=== PATIENT | female | born 1980 | race Caucasian/White ===

== ENCOUNTER 2020-01-30 14:36 | Emergency (ER) | payer OTHER, SELFPAY ==
[2020-01-30 15:15] VITALS: BP 112/75; PULSE 97; RESP 20; TEMP 36.6; O2SAT 100
--- NOTE | 2020-01-30 15:26 | ECG_ITS ---
Measurements Intervals [place] Rate: 89 P: 45 MD: 135 QRS: 87 QRSD: 89 T: 49 QT: 374 QTc: 457 Interpretive Statements SINUS RHYTHM MINIMAL Q WAVES- INFERIOR LEADS BASELINE ARTIFACT- V1, V5 BORDERLINE ECG Electronically Signed On 01-30-2020 17:51:53 CDT by Clifford Nguyen D.O.
--- NOTE | 2020-01-30 15:34 | ED.OVERDOSE ---
HPI - Overdose General Chief Complaint: Overdose Stated Complaint: amb Source: patient and family Mode of arrival: ambulatory Limitations: no limitations History of Present Illness HPI Narrative: pt is a 39 yo female who presents to EDafter drinking and taking a bunch of ativan. Unsure how many per patient. SHe sent text messages to her family to direct the money where to go from her money. Family interpreted this as a suicidal statement. is recently [facility] and he states she has been very very depressed. He said she drinks and is like this all the time. complaint: intentional overdose Intent: unwilling to say Context: Accidental Overdose: was drinking then took pills Associated symptoms: depression Treatments Prior to Arrival: none Related Data Home Medications Medication Instructions Recorded Confirmed bupropion HCl [Wellbutrin XL] 300 mg PO QAM 01/30/20 01/30/20 lorazepam 0.5 mg PO DAILY PRN 01/30/20 01/30/20 Allergies Allergy/AdvReac Type Severity Reaction Status Date / Time No Known Allergies Allergy Verified 01/30/20 15:32 Review of Systems Review of Systems: All systems reviewed & are unremarkable except as noted in HPI and below PMFSH Past Medical History Medical History Alcohol abuse Depression Family History Family History Mother Hypertension Social History Social History (Updated 01/30/20 @ 15:43 by Ghada Villagomez MD) Smoking status: Current every day smoker Alcohol intake: current Substance use type: marijuana Living arrangements: with family Gender identity (if verbalized by the patient): Female Exam Const: General: no acute distress Nutritional Appearance: thin Orientation/consciousness: patient oriented x3 HENMT: Head: normal to inspection Eyes: Conjunctivae: conjunctivae normal Pupils: Equal, round and reactive pupils present Neck: Neck: normal visual inspection Chest: Chest palpation & inspection: normal inspection of the chest Resp: Effort & Inspection: normal respiratory effort Cardio: Rate: regular rate Rhythm: regular rhythm GI: GI Palp: Yes Soft to palpation, No Tenderness to palpation present (GI) and No Guarding due to palpation present (GI) Back/Spine/Pelvis: Back: no CVA tenderness Skin: General skin exam: normal color Neuro: General: patient oriented x3 and moves all extremities Extrem: General: normal to inspection Psych: Appearance: grossly normal Mental Status: mental status grossly normal Thought content: Yes Depressive thoughts present Other: intoxicated Course Course Emergency Course: Pt states that she is not going to stay any more. She is not suicidal at all, and states she isnt even depressed. Pt says she was just telling her sibs that she didnt need or want the money, she just wanted her kids to have it. I asked the tif he was concerned about her depression and he stated that he wasnt going to say anyting or answer any of my wuestions. Pt was not clinically intoxicated and denied SI. I did not hav enough to hold her here against her will. She signed out AMA and mental health was notified per nursing Vital Signs Vital signs: Vital Signs Temperature 36.6 C 01/30/20 15:15 Pulse Rate 97 01/30/20 15:15 Respiratory Rate 20 01/30/20 15:15 Blood Pressure 112/75 01/30/20 15:15 Pulse Oximetry 100 01/30/20 15:15 Temperature 36.6 C 01/30/20 15:15 Pulse Rate 87 01/30/20 18:05 Respiratory Rate 14 01/30/20 20:07 Blood Pressure 99/60 L 01/30/20 18:05 Pulse Oximetry 93 01/30/20 18:05 MDM - Overdose Lab Data Result diagrams: 01/30/20 15:37 01/30/20 15:37 Labs: Lab Results 01/30/20 01/30/20 01/30/20 Range/Units 15:26 15:27 15:37 WBC 13.0 H (4.8-10.8) K/mm3 RBC 4.95 (4.20-5.40) M/mm3 Hgb
[2020-01-30 15:43] VITALS: RESP 20
[2020-01-30 15:43] LABS: Basophils Absolute Auto 0.07 K/mm3 (0.00-0.10); Basophils Percent Auto 0.5 % (0.0-1.0); Eosinophils Absolute Auto 0.19 K/mm3 (0.02-0.50); Eosinophils Percent Auto 1.5 % (1.0-6.0); Hematocrit 44.6 % (35.0-49.0); Immature Granulocyte Absolute 0.06 K/mm3 (0.00-0.00); Immature Granulocyte Percent A 0.5 % (0.0-0.0); Lymphocytes Absolute Auto 4.25 K/mm3 (1.10-4.50); Lymphocytes Percent Auto 32.7 % (18.0-42.0); Mean Corpuscular HGB Conc 33.6 g/dL (32.0-36.0); Mean Corpuscular Hemoglobin 30.3 pg (27.0-31.0); Mean Corpuscular Volume 90.1 fL (78.0-102.0); Monocytes Absolute Auto 0.83 K/mm3 (0.10-0.90); Monocytes Percent Auto 6.4 % (2.0-11.0); Neutrophils Absolute Auto 7.6 K/mm3 (1.7-7.2); Neutrophils Percent Auto 58.4 % (50.0-70.0); Platelet Count Result 441 K/mm3 (150-420); Red Blood Count 4.95 M/mm3 (4.20-5.40); Red Cell Distribution Width 13.2 % (11.6-14.4)
[2020-01-30 15:45] LABS: Appearance Urine Clear (Clear); Bilirubin Urine Negative (Negative); Color Urine Straw (Yellow); Glucose Urine UA Negative (Negative); Ketones Urine Negative (Negative); Leukocyte Esterase Ur Negative LEU/UL (Negative); Nitrate Urine Negative (Negative); Protein Urine Negative (Negative); Specific Grav Ur <= 1.005 (1.010-1.020); Urobilinogen Urine 0.2 mg/dL (0.2-1.0); pH Urine 5.5 (5.0-8.0)
[2020-01-30 15:50] LABS: Add Urine Microscopic? YES; Blood Urine Trace-Intact (Negative); RBC Urine None seen /hpf (0-2)
[2020-01-30 15:51] LABS: Amphetamine Screen Urine Negative (Negative); Barbiturate Screen Urine Negative (Negative); Benzodiazepines Screen Urine Negative (Negative); Cannabinoid Screen Urine Negative (Negative); Cocaine Screen Urine Negative (Negative); Methadone Screen Urine Negative (Negative); Opiate Screen Urine Negative (Negative); Phencyclidine Screen Urine Negative (Negative)
[2020-01-30 15:51] LABS: Bacteria Urine None seen /hpf; Squamous Epithelial Cell Urine Rare /hpf (Few); WBC Urine None seen /hpf (0-3)
[2020-01-30 15:56] LABS: Acetaminophen 0 ug/mL (10-30); Alanine Aminotransferase 32 U/L (14-59); Albumin Level 4.1 g/dL (3.4-5.0); Alkaline Phosphatase 79 U/L (46-116); Ammonia < 10 umol/L (11-32); Anion Gap 12 mmol/L (8-16); Aspartate Amino Transferase 18 U/L (15-37); Bilirubin,Total 0.3 mg/dL (0.00-1.00); Blood Urea Nitrogen 10 mg/dL (7-18); Calcium 8.5 mg/dL (8.5-10.1); Carbon Dioxide 25 mmol/L (21-32); Chloride 103 mmol/L (98-108); Estimated Glomerular Filt Rate > 60; Ethanol 198 mg/dL (0-6); Glucose 73 mg/dL (70-99); Magnesium 2.4 mg/dL (1.8-2.4); Osmolality Calculated 288 mOsm/kg (285-295); Potassium 3.7 mmol/L (3.5-5.1); Salicylate 5.2 mg/dL (2.8-20.0); Sodium 140 mmol/L (136-145); Total Protein 8.6 g/dL (6.4-8.2)
[2020-01-30 16:00] VITALS: BP 101/63; PULSE 86; RESP 20; O2SAT 93
[2020-01-30 17:00] VITALS: BP 116/68; PULSE 94; RESP 20; O2SAT 95
[2020-01-30 18:05] VITALS: BP 99/60; PULSE 87; RESP 20; O2SAT 93
--- NOTE | 2020-01-30 18:09 | PC.NURSE ---
1530 Doctor has assessed pt and lab work is being drawn 1600 pt tearful with and resting quietly in bed 1630 pt resting quietly with eyes closed at bedside 1700 pt resting quietly with eyes closed at bedside 1730 pt resting quietly with eyes closed at bedside 1800 pt resting quietly with eyes closed at bedside
--- NOTE | 2020-01-30 20:02 | PC.NURSE ---
PT STATES TO RN THAT SHE WANTS TO SIGN OUT AMA. ERP CONTACTED. ERP ASSESSED PT AND STATES WE ARE UNABLE TO HOLD HER AGAINST HER WILL SINCE SHE IS NOT A DANGER TO HERSELF OR OTHERS AND IS NOT CLINICALLY INTOXICATED AT THIS TIME. RN EDUCATED PATIENT AND EXPLAINED RISKS OF SIGNING OUT OF THE HOSPITAL AMA. REFUSAL OF MEDICAL TREATMENT/EXAM FORM COMPLETED BY RN AND SIGNED BY PATIENT.
[2020-01-30 20:07] VITALS: RESP 14
[2020-01-30 20:08] LABS: Ethanol 83 mg/dL (0-6)
== END 2020-01-30 20:08 | disposition left against medical advice (07) ==
PROVIDERS: Emergency Provider Emergency Medicine; PCP Physician Assistant
DX: T50.901A Poisoning by unspecified drugs, medicaments and biological substances, accidental (unintentional), initial encounter (principal)
CPT/HCPCS: 36415; 80053; 80307; 81001; 82140; 83735; 85025; 93005; 99283

== ENCOUNTER 2020-07-17 14:46 | Emergency (ER) | payer OTHER, SELFPAY ==
--- NOTE | ~2020-07-17 | XR_ITS ---
XR chest 2V DATE: 07/17/2020 15:58 INDICATION: Midsternal chest pain, intermittent palpitations TECHNIQUE: PA and lateral views COMPARISON: None FINDINGS: Normal heart size. Aortic arch calcification. No hilar or mediastinal enlargement. The lungs are hyperinflated and lung markings are scattered circular in the upper lung zones, suggest ing emphysema. There is mild dextroscoliosis of the thoracolumbar spine. IMPRESSION: Bilateral hyperinflation, suggesting COPD Aortic atherosclerosis No active cardiopulmonary disease Reviewed, dictated and finalized at location A.
[2020-07-17 15:08] VITALS: BP 173/110; PULSE 80; RESP 18; TEMP 37.1; O2SAT 98
[2020-07-17 15:09] VITALS: PULSE 88
--- NOTE | 2020-07-17 15:09 | ECG_ITS ---
Measurements Intervals [place] Rate: 74 P: 55 DC: 143 QRS: 78 QRSD: 89 T: 66 QT: 374 QTc: 417 Interpretive Statements SINUS RHYTHM NORMAL ECG Electronically Signed On 07-17-2020 17:34:23 CDT by Clifford Nguyen D.O.
[2020-07-17] MEDS: SODIUM CHLORIDE 0.9% IV 1,000 ML 999 ML IV CONT (15:35)
[2020-07-17] MEDS: ONDANSETRON INJ 4 MG/2 ML VIAL IV PUSH (15:37)
[2020-07-17] MEDS: MAG HYDROX/ALUMINUM HYD/SIMETH 30 ML, PHENobarb/HYOSCY/ATROPINE/SCOP 32.4 MG, LIDOCAINE... PO (15:43)
[2020-07-17 16:04] LABS: Basophils Absolute Auto 0.04 K/mm3 (0.00-0.10); Basophils Percent Auto 0.3 % (0.0-1.0); Eosinophils Absolute Auto 0.17 K/mm3 (0.02-0.50); Eosinophils Percent Auto 1.4 % (1.0-6.0); Hemoglobin 15.1 g/dL (12.0-15.0); Immature Granulocyte Absolute 0.03 K/mm3 (0.00-0.00); Immature Granulocyte Percent A 0.2 % (0.0-0.0); Lymphocytes Absolute Auto 2.82 K/mm3 (1.10-4.50); Lymphocytes Percent Auto 22.4 % (18.0-42.0); Mean Corpuscular HGB Conc 33.6 g/dL (32.0-36.0); Mean Corpuscular Volume 92.4 fL (78.0-102.0); Mean Platelet Volume 9.5 fl (9.2-11.8); Monocytes Absolute Auto 0.84 K/mm3 (0.10-0.90); Monocytes Percent Auto 6.7 % (2.0-11.0); Neutrophils Absolute Auto 8.7 K/mm3 (1.7-7.2); Platelet Count Result 390 K/mm3 (150-420); Red Blood Count 4.87 M/mm3 (4.20-5.40); Red Cell Distribution Width 12.4 % (11.6-14.4); White Blood Count 12.6 K/mm3 (4.8-10.8)
[2020-07-17 16:26] VITALS: BP 136/97; PULSE 66; RESP 18; O2SAT 98
[2020-07-17 16:29] LABS: Alanine Aminotransferase 24 U/L (14-59); Albumin Level 3.5 g/dL (3.4-5.0); Alkaline Phosphatase 69 U/L (46-116); Anion Gap 8 mmol/L (8-16); Aspartate Amino Transferase 16 U/L (15-37); Bilirubin,Total 0.6 mg/dL (0.00-1.00); Blood Urea Nitrogen 11 mg/dL (7-18); Calcium 8.5 mg/dL (8.5-10.1); Carbon Dioxide 28 mmol/L (21-32); Chloride 99 mmol/L (98-108); Estimated CRCL calculation 63 ml/min; Estimated Glomerular Filt Rate > 60; Glucose 109 mg/dL (70-99); Osmolality Calculated 280 mOsm/kg (285-295); Potassium 3.1 mmol/L (3.5-5.1); Sodium 135 mmol/L (136-145); Total Protein 7.5 g/dL (6.4-8.2); Troponin I < 4.0 ng/L (0.00-60.4)
[2020-07-17 16:30] LABS: Thyroid Stimulating Hormone 1.82 uIU/mL (0.36-3.74)
--- NOTE | 2020-07-17 16:37 | ED.CHESTPAIN ---
HPI - Chest Pain General Chief Complaint: Chest Pain Stated Complaint: chest pain Source: patient Mode of arrival: ambulatory Limitations: no limitations History of Present Illness HPI narrative: This is a 39-year-old female that presents with some chest discomfort more epigastric in nature with no radiation no shortness of breath no fever chills little nausea with no vomiting no diaphoresis, the patient is a smoker and alcohol user, with some past medical history of COPD but currently no fever chills no cough no shortness of breath. All the pain is elicited in the epigastric area and started today feels like there is a knot in her epigastric area with no reproducible chest pain. complaint: chest discomfort Timing of current episode: episodic Onset: during rest Pain location: epigastric Pain radiation: none Severity: moderate Related Data Allergies Allergy/AdvReac Type Severity Reaction Status Date / Time No Known Allergies Allergy Verified 01/30/20 15:32 Review of Systems Review of Systems: All systems reviewed & are unremarkable except as noted in HPI and below PMFSH Past Medical History Medical History Alcohol abuse Depression Family History Family History Mother Hypertension Social History Social History Smoking status: Current every day smoker Alcohol intake: current Substance use type: marijuana Gender identity (if verbalized by the patient): Female Exam Const: General: no acute distress Orientation/consciousness: patient oriented x3 HENMT: Head: normal to inspection Eyes: Conjunctivae: conjunctivae normal Pupils: Equal, round and reactive pupils present Direct Ophthalmoscopy: no photophobia Neck: Neck: normal visual inspection Chest: Chest palpation & inspection: normal inspection of the chest Resp: Effort & Inspection: normal respiratory effort Auscultation: clear to auscultation bilaterally Cardio: Rate: regular rate Rhythm: regular rhythm GI: Auscultation: normal bowel sounds : General: Yes no CVA tenderness Urinary Catheter: Urinary Catheter: patent and draining Back/Spine/Pelvis: Back: no CVA tenderness Skin: General skin exam: normal color Rashes: no rashes Neuro: General: patient oriented x3, moves all extremities, no meningeal signs and no focal motor deficits Extrem: General: normal to inspection and no pedal edema Psych: Appearance: grossly normal Mental Status: mental status grossly normal Course Course Emergency Course: Patient received Zofran and a GI cocktail and states that her epigastric and chest pain have markedly improved, reviewed lab findings and x-rays with the patient and stated that her potassium was low and will give her a dose of potassium while the patient is in the ER and will send a prescription for potassium. Vital Signs Vital signs: Vital Signs Temperature 37.1 C 07/17/20 15:08 Pulse Rate 80 07/17/20 15:08 Respiratory Rate 18 07/17/20 15:08 Blood Pressure 173/110 H 07/17/20 15:08 Pulse Oximetry 98 07/17/20 15:08 Temperature 37.1 C 07/17/20 15:08 Pulse Rate 66 07/17/20 16:26 Respiratory Rate 18 07/17/20 16:26 Blood Pressure 136/97 H 07/17/20 16:26 Pulse Oximetry 98 07/17/20 16:26 MDM - Chest Pain Lab Data Result diagrams: 07/17/20 16:00 07/17/20 16:00 Labs: Lab Results 07/17/20 07/17/20 07/17/20 Range/Units 16:00 16:00 16:00 WBC 12.6 H (4.8-10.8) K/mm3 RBC 4.87 (4.20-5.40) M/mm3 Hgb 15.1 H (12.0-15.0) g/dL Hct 45.0 (35.0-49.0) % MCV 92.4 (78.0-102.0) fL MCH 31.0 (27.0-31.0) pg MCHC 33.6 (32.0-36.0) g/dL RDW 12.4 (11.6-14.4) % Plt Count 390 (150-420) K/mm3 MPV 9.5 (9.2-11.8) fl Immature Gran % (Auto) 0.2 H (0.0-0.0) %
[2020-07-17] MEDS: POTASSIUM CHLORIDE 20 MEQ TABLET 40 MEQ PO (16:44)
== END 2020-07-17 16:51 | disposition home or self-care (01) ==
PROVIDERS: Emergency Provider Emergency Medicine; PCP Physician Assistant
DX: R07.89 Other chest pain (principal); E87.6 Hypokalemia; K21.9 Gastro-esophageal reflux disease without esophagitis
CPT/HCPCS: 36415; 71046; 80053; 84443; 84484; 85025; 93005; 96361; 96374; 99283; 99284; A9270; J2405; J7030

== ENCOUNTER 2020-07-25 15:40 | Emergency (ER) | payer OTHER, SELFPAY ==
[2020-07-25 15:40] VITALS: BP 130/94; PULSE 84; RESP 16; TEMP 36.6; O2SAT 96
--- NOTE | 2020-07-25 16:31 | ED.SKABFB ---
HPI - Skin/Abscess/Foreign Bdy General Chief complaint: Skin/Abscess/Foreign Body Stated complaint: rash on inner thigh Time Seen by Provider: 07/25/20 16:31 Source: patient Mode of arrival: ambulatory Limitations: no limitations History of Present Illness HPI narrative: 39-year-old woman comes in today complaining of a rash on the inside of her right thigh. She states that is somewhat itchy and mildly painful. She is concerned that it might be shingles. She states his symptoms started approximately 3 days ago had no prodromal symptoms. She has had no fever, nausea, vomiting or blister like lesions. complaint: rash Onset (ago): day(s) (3) Location: RLE Severity: moderate Quality: burning and pruritic Pain Consistency: constant Exacerbating factors: none Context: none Associated symptoms: itching Treatments prior to arrival: other ( [id number] salve.) Related Data Allergies Allergy/AdvReac Type Severity Reaction Status Date / Time No Known Allergies Allergy Verified 01/30/20 15:32 Review of Systems Review of Systems: All systems reviewed & are unremarkable except as noted in HPI and below Constitutional: Constitutional: Denies chills and Denies fever(s) Eyes: Eyes: Reports change in vision and Reports photophobia ENT: Denies dysphagia, Denies nasal congestion and Denies sore throat Cardiovascular: Cardiovascular: Denies chest pain and Denies radiating jaw, neck or arm pain Respiratory: Respiratory: Denies cough and Denies dyspnea Gastrointestinal: Gastrointestinal: Denies abdominal pain, Denies nausea and Denies vomiting Integumentary/Breasts: Skin/Breast: Denies pruritus, Denies erythema and Denies rash Neurologic: Denies vertigo, Denies dizziness, Denies syncope, Denies headache(s) and Denies focal weakness Hematologic/Lymphatic: Hematologic/Lymphatic: Denies easy bleeding and Denies easy bruising Allergic/Immunologic: Allergic/Immunologic: Denies lip swelling and Denies throat swelling PMFSH Past Medical History Medical History Alcohol abuse Depression Family History Family History Mother Hypertension Social History Social History Smoking status: Current every day smoker Alcohol intake: current Substance use type: marijuana Gender identity (if verbalized by the patient): Female Exam Const: General: healthy appearing, no acute distress and alert Orientation/consciousness: patient oriented x3 Limitations: no limitations Eyes: Conjunctivae: conjunctivae normal Pupils: Equal, round and reactive pupils present EOM: EOMs intact bilaterally Resp: Effort & Inspection: normal respiratory effort and not labored Auscultation: clear to auscultation bilaterally, no rales, no rhonchi and no wheezes Cardio: Rate: regular rate Rhythm: regular rhythm Heart sounds: no murmurs GI: GI Palp: Yes Soft to palpation and No Tenderness to palpation present (GI) Auscultation: normal bowel sounds Other: no hepatosplenomegaly Skin: General skin exam: normal color, no jaundice and no pallor Other: patchy erythematous rash on the medial aspect of the right upper thigh. No vesicles or bullous lesions are present. Neuro: General: patient oriented x3, moves all extremities, no focal motor deficits and CN's II-XI intact bilaterally Speech: normal speech Gait exam (Neuro): Normal gait present Extrem: General: normal to inspection and no clubbing, cyanosis or edema Psych: Appearance: grossly normal and well kempt Mental Status: mental status grossly normal Affect: normal affect Attitude: cooperative Thought content: Yes Normal thought content present Course Vital Signs Vital signs: Vital Signs Temperature 36.6 C 07/25/20 15:40 Pulse Rate 84 07/25/20 15:40 Respiratory Rate 16 07/25/20 15:40 Blood Press
[2020-07-25 17:00] VITALS: RESP 16
== END 2020-07-25 17:00 | disposition home or self-care (01) ==
LOC: CHSED 15:41
PROVIDERS: Emergency Provider Emergency Medicine; PCP Physician Assistant
DX: R21 Rash and other nonspecific skin eruption (principal)
CPT/HCPCS: 99283

== ENCOUNTER 2020-10-03 17:03 | Outpatient (CLI) | payer OTHER, SELFPAY ==
--- NOTE | ~2020-10-03 | XR_ITS ---
EXAMINATION: XR lumbar spine 2-3V EXAM DATE: 10/03/2020 17:34 INDICATION: Low back, right hip pain. Numbness going down right leg. TECHNIQUE: Lumber spine frontal, lateral, lateral L5-S1 projections for interpretation. There is no prior study for comparison. FINDINGS: The vertebral bodies are aligned in the AP dimension. There is mild loss of the L3-4 disc height. The vertebral body and disc heights are otherwise well maintained. Minimal lumbar levocurvatu re, could be positional. Mild lumbar facet arthropathy. Sacrum, sacroiliac joints, sacral arcuate kyleigh es are intact. There is a placement. Essure closure devices. IMPRESSION: 1. Mild lumbar spondylosis. Reviewed, dictated and finalized at location A. IMPRESSION: 1. Mild lumbar spondylosis.
--- NOTE | ~2020-10-03 | XR_ITS ---
EXAMINATION: XR hip RT min 2V EXAM DATE: 10/03/2020 17:35 INDICATION: Hip replacement 2005. Right leg numbness. TECHNIQUE: Right hip frontal, 'frog leg' projections for interpretation. There is no prior study fo r comparison. FINDINGS: Right hip arthroplasty, hardware in expected position. There are Essure closure devices. Th ere are no acute fractures or dislocations identified. There is no subcutaneous gas. The soft tissu e is unremarkable. IMPRESSION: Intact right hip arthroplasty. Reviewed, dictated and finalized at location A.
== END 2020-10-03 17:04 | disposition home or self-care (01) ==
LOC: CHSIMG 17:08
PROVIDERS: PCP Physician Assistant; Visit Provider Physician Assistant
DX: M54.16 Radiculopathy, lumbar region (principal); Z96.641 Presence of right artificial hip joint
CPT/HCPCS: 72100; 73502

== ENCOUNTER 2021-06-09 06:45 | Outpatient (CLI) | payer OTHER, SELFPAY ==
--- NOTE | ~2021-06-09 | US_ITS ---
EXAMINATION: US pelvic complete DATE: 06/09/2021 07:40 INDICATION: Dysmenorrhea. TECHNIQUE: Multiple transabdominal sonographic images of the pelvis were obtained. COMPARISON: None. FINDINGS: The uterus measures 8.3 x 4.3 x 6.1 cm. There is no free fluid in the pelvis. The endometrial complex measures 10 mm in thickness. Essure coils are noted in the cornua. The right ovary measures 1.6 x 1. 5 x 1.8 cm. The left ovary measures 4.6 x 2.4 x 3.3 cm. There is a 2.6 cm hemorrhagic cyst in left ov tom. There is normal vascular flow in the ovaries. IMPRESSION: 1. 2.6 cm hemorrhagic cyst in left ovary. Reviewed, dictated and finalized at location A. T PACKER
--- NOTE | ~2021-06-09 | MR_ITS ---
EXAMINATION: MR brain/brain stem wo con DATE: 06/09/2021 07:27 INDICATION: Migraine headache. TECHNIQUE: Magnetic resonance imaging (MRI) of the brain and brainstem was performed without intraven ous contrast. Sequences included sagittal and axial T1-weighted FSE, axial diffusion-weighted FS EPI, axial T2*-weighted GRE, axial T2-weighted FLAIR Propeller, and axial T2-weighted Propeller. Apparent diffusion coefficient (ADC) maps were created. COMPARISON: None. FINDINGS: There is no intracranial hemorrhage, acute infarction, or abnormal intracranial mass lesion . There are 3 foci of nonspecific increased T2-weighted signal intensity in the cerebral white matter , which is within normal limits for the patient's age. The ventricles are normal in size. Cavum septu m callosum and vergae are noted. There is a trace right mastoid effusion. The paranasal sinuses are c lear. The orbits are normal. IMPRESSION: 1. Normal brain. Reviewed, dictated and finalized at location A. R LAYER SCRUBBER TENDER IMPRESSION: 1. Normal brain.
== END 2021-06-09 06:46 | disposition home or self-care (01) ==
LOC: CHSIMG 06:47
PROVIDERS: PCP Physician Assistant; Visit Provider Physician Assistant
DX: G43.909 Migraine, unspecified, not intractable, without status migrainosus (principal); N94.6 Dysmenorrhea, unspecified
CPT/HCPCS: 70551; 76856